=== PATIENT | female | born 1965 | race Caucasian/White ===

== ENCOUNTER 2020-12-17 19:07 | Inpatient (IN) | payer OTHER ==
[~2020-12-17] VITALS: Ht 157.5 cm; Wt 68.9 kg
[2020-12-17 19:16] VITALS: Ht 157.5 cm; Wt 68.9 kg
--- NOTE | 2020-12-17 19:35 | NUR ---
PT REPORTS TO ED C/O INTERMITTENT CP X3 DAYS. PT REPORTS CP "PRESSURE" RADIATING TO L. ARM 04/19 ATT. PT DENIES ANY SOB OR ADDITONAL SYMPTOMS. PT IS AOX4, ON FCM, VSS, NAD NOTED ATT. MD AT BEDSIDE FOR MSE. WILL CONTINUE TO MONITOR.
[2020-12-17 19:43] LABS: BASOPHIL % 0.8 % (0.2-1.3); PLATELET COUNT 213 x10^3mcL (179-408); RED CELL DISTRIBUTION WIDTH 13.5 % (12.3-17.7)
[2020-12-17 19:54] LABS: CARBON DIOXIDE 28.6 mmol/L (21-32); CHLORIDE SERUM 105 mmol/L (98-107); CREATININE SERUM 0.7 mg/dL (0.6-1.0); GFR1 > 60 mL/min; GLUCOSE SERUM 108 mg/dL (74-106); POTASSIUM SERUM 3.6 mmol/L (3.5-5.1); SODIUM SERUM 142 mmol/L (136-145)
[2020-12-17 19:59] LABS: ALKALINE PHOSPHATASE 137 U/L (46-116); ALT/SGPT 28 U/L (14-59); AST/SGOT 15 U/L (15-37); BILIRUBIN TOTAL 0.2 mg/dL (0.20-1.00); TOTAL PROTEIN, SERUM 7.9 g/dL (6.4-8.2)
[2020-12-17] MEDS ORDERED: ZESTRIL10 MG PO (21:48)
[2020-12-18 01:05] LABS: microscopic required? YES; urine erythrocyte 1+ (NEGATIVE)
[2020-12-18 01:08] VITALS: BP 121/87
--- NOTE | 2020-12-18 01:16 | NUR ---
RECEIVED PT FROM ER, PT ADMIT FOR CHEST PAIN, ACUTE CORONARY SYNDROME, PT IS A/O X4, VERBAL RESPONSIVE. LUNG SOUND CLEAR BILATERAL, NO COUGH, NO SOB. PT IS ON TELE 21, NSR, C/O CHEST PAIN AND RAIDATE TO LEFT ARM AND BACK. BOWEL SOUND PRESENT ALL 4 QUADRANTS, NO DISTENTION, NO TENDER. PEDAL PULSE PRESENT BOTH FEET, NO EDEMA, IV AT LEFT AC, NO LEAKING, NO INFILTRATION. ALL ADLS ASSIST, ALL NEED MET, CALL LIGHT IN REACH, WILL CONTINUE TO MONITOR.
[2020-12-18 01:41] LABS: AMPHETAMINE QUAL UR NONE DETECTED (See below)
[2020-12-18 02:57] LABS: CHOLESTEROL/HDL RATIO 4.5
[2020-12-18 05:36] VITALS: BP 128/64
--- NOTE | 2020-12-18 06:23 | NUR ---
PT IS RESTING IN BED ASLEEP. NO S/SX OF PAIN OR DISCOMFORT NOTED. NO SIGNIFICANT CHANGES AT THIS TIME. REMAINS IN STABLE CONDITION. ALL NEEDS HAVE BEEN MET. BED IN LOWEST POSITION. CALL LIGHT IS W/IN REACH. WILL ENDORSE CARE TO DAY SHIFT NURSE.
[2020-12-18 07:29] LABS: BASOPHIL % 0.3 % (0.2-1.3); PLATELET COUNT 198 x10^3mcL (179-408); RED CELL DISTRIBUTION WIDTH 13.7 % (12.3-17.7)
--- NOTE | 2020-12-18 07:36 | NUR ---
RECEIVED REPORT FROM PAPER CONE DRYING MACHINE OPERATOR RN. PT LAYING IN BED. DEVELOPMENT VICE PRESIDENT AT BEDSIDE AND TAKING VITALS. NO ACUTE DISTRESS NOTED. PT C/O [place], WILL MEDICATE PER EMAR. AAOX4. NO C/O CP AND PRESSURE. PULSES +, - EDEMA. ON RA, NO SOB NOTED. BOWEL SOUNDS +, NO N/V/D NOTED. SKIN INTACT. IV TO LAC PATENT AND FLUSHING AT THIS TIME. CALL LIGHT WITHIN REACH. BED IN LOWEST POSITION.
[2020-12-18 07:47] LABS: CALCIUM 8.3 mg/dL (8.5-10.1); CHLORIDE SERUM 104 mmol/L (98-107); CREATININE SERUM 0.6 mg/dL (0.6-1.0); GFR1 > 60 mL/min; GLUCOSE SERUM 92 mg/dL (74-106); MAGNESIUM 2.1 mg/dL (1.8-2.4); PHOSPHOROUS 4.4 mg/dL (2.5-4.9); POTASSIUM SERUM 3.6 mmol/L (3.5-5.1); SODIUM SERUM 142 mmol/L (136-145)
[2020-12-18 08:31] VITALS: BP 143/70
--- NOTE | 2020-12-18 10:18 | NUR ---
DR. JUSTICE AND DR. GREGG AT BEDSIDE, ASSESSED PT AND DISCUSSED POC AND POSSIBLE DC TODAY. WILL AWAIT FOR ECHO RESULTS. PT VERBALIZED UNDERSTANDING.
[2020-12-18 12:05] VITALS: BP 142/67
--- NOTE | 2020-12-18 12:22 | NUR ---
ECHO COMPLETED, WILL AWAIT FOR RESULTS.
[2020-12-18] MEDS ORDERED: LIPI10 PO (12:45)
[2020-12-18] MEDS ORDERED: METOPROLOL TART25 M1 PO (12:46)
[2020-12-18] MEDS ORDERED: ECO81 PO (12:47)
--- NOTE | 2020-12-18 13:25 | NUR ---
PT C/O [place], STATED THAT SHE WANTED TYLENOL, WILL GIVE TYLENOL WHEN IT IS DUE. NO OTHER COMPLAINTS AT THIS TIME. ALSO REQUESTED TO CHECK BP, BP 140/64 HR 65. ALL NEEDS ATTENDED. CALL LIGHT WITHIN REACH.
[2020-12-18 15:07] VITALS: BP 142/67
[2020-12-18 16:36] VITALS: BP 144/75
--- NOTE | 2020-12-18 17:05 | NUR ---
PT DISCHARGED, PROVIDED DC INSTRUCTIONS AND EDUCATION. PT VERBALIZED UNDERSTANDING. NO ACUTE DISTRESS NOTED. ON RA. NO CP AND PRESSURE AT THIS TIME. DCED IV, CATHETER INTACT. NO S/S OF EXCESSIVE BLEEDING ON SITE. TELE MONITOR RETURNED TO TIRE INSTALLER. PT HAS ALL HER BELONGINGS. PT HAD NO ADDITIONAL QUESTIONS. WHEELCHAIRED TO THE LOBBY.
== END 2020-12-18 17:00 | disposition home or self-care (01) | DRG 311 ==
LOC: ED 19:07 → DU 21:56
PROVIDERS: Emergency Medicine; ADMIT Family Medicine; ATTEND Family Medicine
DX: I24.9 Acute ischemic heart disease, unspecified (principal); I16.0 Hypertensive urgency; E78.5 Hyperlipidemia, unspecified; R73.03 Prediabetes; G43.909 Migraine, unspecified, not intractable, without status migrainosus; Z20.822 Contact with and (suspected) exposure to COVID-19
CPT/HCPCS: 83880; G0378; J2405